=== PATIENT | male | born 1985 | race Hispanic/Latino ===

== ENCOUNTER 2016-10-08 11:54 | Emergency (ER) | payer SELFPAY ==
[2016-10-08] MEDS ORDERED: Gabapentin 100 MG CAP ONE (12:28)
[2016-10-08] MEDS ORDERED: Ibuprofen 800 MG TAB ONE (12:28)
[2016-10-08] MEDS ORDERED: Dexamethasone 4 MG TAB ONE (12:28)
[2016-10-08] MEDS ORDERED: Cyclobenzaprine 10 MG TAB ONE (12:28)
== END 2016-10-08 12:46 | disposition home or self-care (01) ==
LOC: MADERS 11:54
DX: M54.42 Lumbago with sciatica, left side (principal); E03.9 Hypothyroidism, unspecified; Z79.899 Other long term (current) drug therapy
CPT/HCPCS: 99283; J8540

== ENCOUNTER 2016-12-23 17:12 | Emergency (ER) | payer SELFPAY ==
[~2016-12-23 17:12] MED LIST: Sodium Chloride 0.9% 1,000 ML BAG ONE
[2016-12-23] MEDS ORDERED: Morphine 10 MG/ML VIAL ONE (17:45)
[2016-12-23 19:06] LABS: #Basophils 0.1 thou/uL (0.0-0.2); #Eosinphils 0.1 thou/uL (0.0-0.7); #Lymphocytes 1.3 thou/uL (1.20-3.40); #Monocytes 0.8 thou/uL (0.11-0.59); #Neutrophils 7.4 thou/uL (1.40-6.50); %Basophils 1.3 % (0.0-1.0); %Eosinophils 1.5 % (0.0-10.0); %Lymphocytes 13.7 % (21.0-51.0); %Monocytes 8.4 % (0.0-10.0); %Neutrophils 75.2 % (42.0-75.0); Hemoglobin 11.3 g/dL (14.0-18.0); Mean Corpuscular HGB CONC 33.4 g/dL (32.0-36.0); Mean Corpuscular Hemoglobin 26.8 pg (27.0-31.0); Mean Corpuscular Volume 80.2 fl (80.0-94.0); Mean Platelet Volume 9.4 fL (7.4-10.4); Platelet Count 231 thou/uL (130-400); RBC Distribution Width 14.2 % (11.5-14.5); Red Blood Cell (RBC) Count 4.23 mill/uL (4.70-6.10); White Blood Cell (WBC) Count 9.8 thou/uL (4.8-10.8)
[2016-12-23] MEDS ORDERED: Ondansetron HCl/PF 4 MG/2 ML Vial ONE (19:25)
[2016-12-23 19:35] LABS: ALT (SGPT) 19 U/L (8-55); AST (SGOT) 15 U/L (5-34); Alkaline Phosphatase 70 U/L (40-150); Anion Gap 14 mmol/L (10-20); BUN (Urea Nitrogen) 12 mg/dL (8.9-20.6); Bilirubin, Total 0.4 mg/dL (0.2-1.2); Calc. Creatinine Clearance 0 mL/min (70-130); Calcium 9.3 mg/dL (7.8-10.44); Carbon Dioxide 26 mmol/L (22-29); Chloride 104 mmol/L (98-107); Estimated GFR-MDRD Greater than 90; Globulin 3.5 g/dL (2.4-3.5); Glucose 113 mg/dL (70-105); Lipase 65 U/L (8-78); Potassium 4.1 mmol/L (3.5-5.1); Protein, Total 7.5 g/dL (6.0-8.3); Sodium 140 mmol/L (136-145)
== END 2016-12-23 20:25 | disposition short-term general hospital (02) ==
LOC: MADERS 17:12
DX: R10.31 Right lower quadrant pain (principal); E03.9 Hypothyroidism, unspecified
CPT/HCPCS: 36415; 80053; 83605; 83690; 85025; 96361; 96374; 96375; J1170; J2270; J2405; J7050

== ENCOUNTER 2016-12-25 15:38 | Emergency (ER) | payer SELFPAY | END 2016-12-25 17:07 | disposition home or self-care (01) | LOC: MADERS 15:38 | DX: J01.90 Acute sinusitis, unspecified (principal); J20.9 Acute bronchitis, unspecified; E03.9 Hypothyroidism, unspecified; Z79.899 Other long term (current) drug therapy | CPT/HCPCS: 99283 ==

== ENCOUNTER 2017-08-04 12:32 | Emergency (ER) | payer SELFPAY ==
[2017-08-04] MEDS ORDERED: traMADol HCl 50 MG TAB ONE (13:00)
[2017-08-04] MEDS ORDERED: Diazepam 5 MG TAB ONE (13:00)
[2017-08-04] MEDS ORDERED: Naproxen 500 MG TAB ONE (13:01)
== END 2017-08-04 13:07 | disposition home or self-care (01) ==
LOC: MADERS 12:32
DX: M54.5 Low back pain (principal); E03.9 Hypothyroidism, unspecified
CPT/HCPCS: 99283

== ENCOUNTER 2017-08-31 16:15 | Emergency (ER) | payer SELFPAY ==
[2017-08-31] MEDS ORDERED: Sodium Chloride 0.9% 1,000 ML BAG ONE (16:25)
[2017-08-31] MEDS ORDERED: Ondansetron HCl/PF 4 MG/2 ML Vial ONE (16:59)
[2017-08-31 17:03] LABS: #Eosinphils 0.2 thou/uL (0.0-0.7); #Lymphocytes 1.4 thou/uL (1.20-3.40); #Monocytes 0.5 thou/uL (0.11-0.59); #Neutrophils 6.4 thou/uL (1.40-6.50); %Basophils 0.5 % (0.0-1.0); %Eosinophils 2.6 % (0.0-10.0); %Lymphocytes 16.3 % (21.0-51.0); %Monocytes 5.9 % (0.0-10.0); %Neutrophils 74.8 % (42.0-75.0); Hemoglobin 11.3 g/dL (14.0-18.0); MDiff Complete? YES; Manual Diff?? NO; Mean Corpuscular HGB CONC 31.2 g/dL (32.0-36.0); Mean Corpuscular Volume 80.1 fL (78.0-98.0); Platelet Count 272 thou/uL (130-400); RBC Distribution Width 14.9 % (11.5-14.5); Red Blood Cell (RBC) Count 4.51 mill/uL (4.70-6.10); White Blood Cell (WBC) Count 8.6 thou/uL (4.8-10.8)
[2017-08-31 17:10] LABS: Acetaminophen Less than 6.0 mcg/mL (10.0-30.0); Alcohol Less than 10 mg/dL (Less than 10); Salicylate Less than 8.0 mg/dL (15.0-30.0)
[2017-08-31 17:12] LABS: Bilirubin Negative (Negative); Blood, Urine Trace (Negative); Clarity Clear (Clear); Glucose, Urine (Dipstick) Negative (Negative); Leukocyte Negative (Negative); Nitrite Negative (Negative); Protein, Urine (Dipstick) 30 mg/dL (Neg-Trace); Specific Gravity, Urine 1.025 (1.005-1.030); Urobilinogen 0.2 mg/dL (0.2-1.0)
[2017-08-31 17:13] LABS: ALT (SGPT) 15 U/L (8-55); AST (SGOT) 15 U/L (5-34); Albumin 3.8 g/dL (3.5-5.0); Alcohol Less than 10 mg/dL (Less than 10); Alkaline Phosphatase 52 U/L (40-150); Anion Gap 16 mmol/L (10-20); BUN (Urea Nitrogen) 13 mg/dL (8.9-20.6); Bilirubin, Total 0.5 mg/dL (0.2-1.2); CK (CPK) 203 U/L (30-200); Calc. Creatinine Clearance 0 mL/min (70-130); Calcium 8.6 mg/dL (7.8-10.44); Carbon Dioxide 24 mmol/L (22-29); Chloride 106 mmol/L (98-107); Estimated GFR-MDRD Greater than 90; Globulin 2.8 g/dL (2.4-3.5); Glucose 114 mg/dL (70-105); Potassium 3.7 mmol/L (3.5-5.1); Protein, Total 6.6 g/dL (6.0-8.3); Sodium 142 mmol/L (136-145)
[2017-08-31 17:15] LABS: RBC/HPF 0-3 HPF (0-3); Squamous Epithelial 0-3 HPF (0-3); WBC/HPF 0-3 HPF (0-3)
[2017-08-31 17:16] LABS: Bacteria/HPF None Seen HPF (None Seen)
--- NOTE | 2017-08-31 17:21 | RAD ---
CHEST ONE VIEW: HISTORY: Dyspnea. COMPARISON: None. FINDINGS: Normal cardiac silhouette. The pulmonary vessels are within normal limits. The right costophrenic a ngle and the right lung base are clear. Increased opacity in the left lung base may be due to the po rtable technique and body habitus. Better interrogation with two view chest radiograph is recommende d. IMPRESSION: Limited evaluation of left lung base. Better interrogation with two view chest radiograph is recomme nded. POS: [facility]
[2017-08-31 17:23] LABS: Amphetamine Not Detected (NotDetected); Barbiturates Screen Not Detected (NotDetected); Benzodiazepine Screen Not Detected (NotDetected); Cocaine Metabolite Screen Not Detected (NotDetected); Medtox Control Line Valid? VALID (VALID); Methadone Not Detected (NotDetected); Methamphetamine Not Detected (NotDetected); Opiate Screen Not Detected (NotDetected); Oxycodone Screen Not Detected (NotDetected); Phencyclidine (PCP) Not Detected (NotDetected); THC/Cannabinoid Screen Not Detected (NotDetected); Tricyclic Screen Not Detected (NotDetected)
[2017-08-31] MEDS ORDERED: Promethazine 25 MG TAB ONE (19:43)
== END 2017-08-31 19:50 | disposition home or self-care (01) ==
LOC: MADERS 16:15
DX: R11.2 Nausea with vomiting, unspecified (principal); E03.9 Hypothyroidism, unspecified
CPT/HCPCS: 36415; 71045; 80053; 80306; 80307; 81003; 81015; 82550; 83605; 84443; 85025; 93005; 96361; 96374; J2405; J7050

== ENCOUNTER 2017-10-08 20:58 | Emergency (ER) | payer SELFPAY ==
[2017-10-08] MEDS ORDERED: Ketorolac Tromethamine 30 MG/ML VIAL ONE (21:24)
[2017-10-08] MEDS ORDERED: diphenhydrAMINE 25 MG CAP ONE (21:24)
[2017-10-08] MEDS ORDERED: Metoclopramide HCl 10 MG/2 ML VIAL ONE (21:24)
[2017-10-08] MEDS ORDERED: Ondansetron HCl/PF 4 MG/2 ML Vial ONE (21:49)
[2017-10-08 21:55] LABS: Anion Gap 19 mmol/L (10-20); BUN (Urea Nitrogen) 11 mg/dL (8.9-20.6); Calc. Creatinine Clearance 0 mL/min (70-130); Calcium 9.9 mg/dL (7.8-10.44); Carbon Dioxide 23 mmol/L (22-29); Chloride 106 mmol/L (98-107); Estimated GFR-MDRD 83; Glucose 108 mg/dL (70-105); Potassium 4.1 mmol/L (3.5-5.1); Sodium 144 mmol/L (136-145)
[2017-10-08 22:00] LABS: #Basophils 0.1 thou/uL (0.0-0.2); #Lymphocytes 2.3 thou/uL (1.20-3.40); #Monocytes 0.7 thou/uL (0.11-0.59); #Neutrophils 7.2 thou/uL (1.40-6.50); %Basophils 0.6 % (0.0-1.0); %Eosinophils 0.4 % (0.0-10.0); %Lymphocytes 22.2 % (21.0-51.0); %Neutrophils 69.8 % (42.0-75.0); Hemoglobin 11.7 g/dL (14.0-18.0); Mean Corpuscular HGB CONC 31.5 g/dL (32.0-36.0); Mean Corpuscular Hemoglobin 24.8 pg (27.0-31.0); Mean Corpuscular Volume 78.7 fL (78.0-98.0); Mean Platelet Volume 6.5 fL (7.4-10.4); Platelet Count 304 thou/uL (130-400); RBC Distribution Width 14.5 % (11.5-14.5); White Blood Cell (WBC) Count 10.4 thou/uL (4.8-10.8)
[2017-10-08 22:01] LABS: Anisocytosis MODERATE=16-30 cells (100X) (0-5/hpf); Hypochromia SLIGHT = 6-15 cells (100X) (0-5/hpf); Microcytosis MODERATE=15-30 cells (100X) (0-5/hpf)
[2017-10-08 22:02] LABS: Prothrombin Time 13.6 SEC (12.0-14.7)
[2017-10-08 22:03] LABS: PTT 31.2 SEC (22.9-36.1)
[2017-10-08] MEDS ORDERED: Morphine 10 MG/ML VIAL ONE (22:22)
--- NOTE | 2017-10-09 08:01 | CT ---
CT OF THE BRAIN WITHOUT CONTRAST; 10/08/17 INDICATION: 32-year-old male with headache. COMPARISON: None. IMPRESSION: No acute intracranial abnormality. COMMENTS: The skull and extracranial soft tissues appear within normal limits. Right mastoid air cells are unde r pneumatized when compared to the left mastoid air cells. The visualized paranasal sinuses appear cl ear. No acute infarct, hemorrhage or hydrocephalus is present. POS: [facility]
== END 2017-10-08 23:24 | disposition home or self-care (01) ==
LOC: MADERS 20:58
DX: R51 Headache (principal); E03.9 Hypothyroidism, unspecified
CPT/HCPCS: 36415; 70450; 80048; 85025; 85610; 85652; 85730; 96361; 96374; 96375; J1885; J2270; J2405; J2765; J7050

== ENCOUNTER 2018-04-19 19:29 | Emergency (ER) | payer SELFPAY ==
[2018-04-19] MEDS ORDERED: Lidocaine Viscous Sol 2% 15 ml UD Cup ONE (19:50)
[2018-04-19] MEDS ORDERED: Mag-Al Plus 1200 MG/1200 MG/120 MG/30 ML UDCUP ONE (19:50)
== END 2018-04-19 20:35 | disposition home or self-care (01) ==
LOC: MADERS 19:29
DX: K29.00 Acute gastritis without bleeding (principal); E03.9 Hypothyroidism, unspecified; Z79.899 Other long term (current) drug therapy
CPT/HCPCS: 99283

== ENCOUNTER 2019-03-10 14:09 | Emergency (ER) | payer SELFPAY | END 2019-03-10 14:57 | disposition home or self-care (01) | LOC: MADERS 14:09 | DX: J00 Acute nasopharyngitis [common cold] (principal); I10 Essential (primary) hypertension; E66.9 Obesity, unspecified; E03.9 Hypothyroidism, unspecified | CPT/HCPCS: 99283 ==

== ENCOUNTER 2019-05-29 18:58 | Emergency (ER) | payer SELFPAY ==
[2019-05-29] MEDS ORDERED: Amoxicillin/Potassium Clav 875 MG TAB ONE (19:39)
[2019-05-29] MEDS ORDERED: Ketorolac Tromethamine 30 MG/ML VIAL ONE (19:39)
[2019-05-29] MEDS ORDERED: Acetaminophen 500 MG TAB ONE (19:39)
== END 2019-05-29 20:06 | disposition home or self-care (01) ==
LOC: MADERS 18:58
DX: J34.0 Abscess, furuncle and carbuncle of nose (principal); I10 Essential (primary) hypertension; E03.9 Hypothyroidism, unspecified
CPT/HCPCS: 96372; 99282; J1885

== ENCOUNTER 2019-07-03 19:31 | Emergency (ER) | payer SELFPAY ==
[2019-07-03] MEDS ORDERED: Sulfameth/Trimethoprim DS 800-160mg TAB ONE (19:57)
== END 2019-07-03 20:00 | disposition home or self-care (01) ==
LOC: MADERS 19:31
DX: L03.113 Cellulitis of right upper limb (principal); L98.499 Non-pressure chronic ulcer of skin of other sites with unspecified severity; I10 Essential (primary) hypertension; E66.9 Obesity, unspecified; E03.9 Hypothyroidism, unspecified
CPT/HCPCS: 99283

== ENCOUNTER 2019-08-26 10:17 | Emergency (ER) | payer SELFPAY ==
--- NOTE | 2019-08-26 12:22 | RAD ---
XR Lumbar Spine 2 Or 3 View HISTORY: Injury, low back pain COMPARISON: None. FINDINGS: The vertebral body heights are maintained. No fracture or subluxation is identified.
--- NOTE | 2019-08-26 12:23 | RAD ---
XR Hip Rt 2-3 View HISTORY: Injury, right hip pain COMPARISON: None. FINDINGS: No fracture or dislocation is identified.
--- NOTE | 2019-08-26 12:25 | RAD ---
XR Foot Lt 3 View STANDARD HISTORY: Injury, left foot pain FINDINGS: No fracture or dislocation is identified.
== END 2019-08-26 12:55 | disposition home or self-care (01) ==
LOC: MADERS 10:17
DX: M72.2 Plantar fascial fibromatosis (principal); M54.5 Low back pain; M25.551 Pain in right hip; I10 Essential (primary) hypertension; E66.9 Obesity, unspecified; E03.9 Hypothyroidism, unspecified; X50.1XXA Overexertion from prolonged static or awkward postures, initial encounter
CPT/HCPCS: 72100

== ENCOUNTER 2020-02-12 02:01 | Emergency (ER) | payer SELFPAY ==
[2020-02-12] MEDS ORDERED: Boostrix 0.5 ML (Tdap) VIAL ONE (02:20)
[2020-02-12] MEDS ORDERED: Lidocaine 1% 20 ML MDV ONE (02:25)
[2020-02-12] MEDS ORDERED: Bacitracin 1 PK ONE (02:50)
== END 2020-02-12 02:58 | disposition home or self-care (01) ==
LOC: MADERS 02:01
DX: S61.211A Laceration without foreign body of left index finger without damage to nail, initial encounter (principal); E66.9 Obesity, unspecified; E03.9 Hypothyroidism, unspecified; I10 Essential (primary) hypertension; Z79.899 Other long term (current) drug therapy; W26.8XXA Contact with other sharp object(s), not elsewhere classified, initial encounter
CPT/HCPCS: 12002; 90471; 90715